=== PATIENT | female | born 1990 | race African-American/Black ===

== ENCOUNTER 2019-12-07 19:52 | Emergency (ER) | payer OTHER ==
[~2019-12-07] VITALS: Ht 167.6 cm; Wt 71.0 kg
[2019-12-07 20:07] VITALS: BP 119/73
== END 2019-12-07 21:49 | disposition home or self-care (01) ==
LOC: ER 19:52
DX: B34.9 Viral infection, unspecified (principal)
CPT/HCPCS: 99281